=== PATIENT | female | born 1960 | race Two or more races ===

== ENCOUNTER 2022-10-07 07:06 | Outpatient (CLI) | payer OTHER | END 2022-10-07 07:11 | disposition home or self-care (01) | LOC: TOM 07:06 | PROVIDERS: ATTEND Internal Medicine Gastroenterology | DX: R19.5 Other fecal abnormalities (principal); K62.5 Hemorrhage of anus and rectum; Z12.11 Encounter for screening for malignant neoplasm of colon ==